=== PATIENT | male | born 1960 | race Caucasian/White ===

== ENCOUNTER 2017-03-14 07:31 | Day surgery (SDC) | payer OTHER ==
[2017-03-13 10:05] VITALS: BMI 33.5
[~2017-03-14] VITALS: Ht 170.2 cm; Wt 102.2 kg
[2017-03-14] VITALS (12 sets, daily range): BP systolic 118–134; BP diastolic 75–88; PULSE 58–105; RESP 10–16; Ht 170.2 cm; Wt 102.2 kg
[~2017-03-14 07:31] MED LIST: CEFAZOLIN 1 GM INJ ONE; CEFAZOLIN 2 GM/50 ML (PMX) 50 ML IVPB SCH; SOD CHLORIDE 0.9% 1,000 ML IV SCH
[2017-03-14] MEDS ORDERED: LORA-186 PO (08:00)
[2017-03-14] MEDS ORDERED: OMEP20CA16 PO (08:00)
[2017-03-14] MEDS ORDERED: LIDOCAINE 2% (MDV) 20 ML INJ ONE (11:01)
[2017-03-14] MEDS ORDERED: BUPIVACAINE 0.5% (SDV) 30 ML INJ ONE (11:01)
[2017-03-14] MEDS ORDERED: BUPIVACAINE 0.25% (MPF) 30 ML INJ ONE (11:01)
[2017-03-14] MEDS ORDERED: ONDANSETRON 4 MG INJ ONE (11:27)
[2017-03-14] MEDS ORDERED: KETOROLAC 30 MG INJ ONE (11:27)
[2017-03-14] MEDS ORDERED: MIDAZOLAM 1 MG/ML 2 ML INJ ONE (11:27)
--- NOTE | 2017-03-14 11:49 | OPR ---
Date/Time of Note Date/Time of Note DATE: 03/14/17 TIME: 11:46 Operative Report Procedure Date: Mar 14, 2017 Preoperative Diagnosis back mass Postoperative Diagnosis back mass Operation Performed 1. back mass excision 6 cm incision and 5 x 3 cm mass 2. localized adjacent tissue transfer with the use of skin flaps 15 sq cm defect 3. therapeutic injection of subcutaneous marcaine cpt code 56943 Surgeon: Brittaney COOPER Anesthesia Type: MAC Estimated Blood Loss: 0 - 10 ml's Specimens back mass Grafts/Implants: none Complications: no Indications This is a 56-year-old male with a back mass. He requires surgical excision. Risks alternatives benefits and percent were discussed the patient. Patient expresses understanding consents to the operation. Procedure Description Patient is taken to the OR and prepped and draped in usual sterile fashion. Surgical timeout is performed. IV antibiotics given. Therapeutic subcu times Marcaine and lidocaine mixture is injected throughout the mass site in the back. A 15 blade is used to make incision circumferentially around the mass site. Dissection cautery was carried down to the subcutaneous tissues to excise the mass in block. Hemostasis of the surgical site was established due to the large tissue defect localized adjacent tissue transfer with these of skin flaps was performed. Superior and inferior skin flaps were advanced and reapproximated with interrupted 2-0 Vicryl. The skin was then closed with skin peter. Dry dressings were applied. Brittaney COOPER Mar 14, 2017 11:49
[2017-03-14] MEDS ORDERED: HYDROCODONE/APAP (5/325) TAB PO ONE (12:00)
== END 2017-03-14 12:58 | disposition home or self-care (01) ==
LOC: SDS 07:31
PROVIDERS: ATTEND Surgery
DX: L72.0 Epidermal cyst (principal); E66.9 Obesity, unspecified; Z68.35 Body mass index [BMI] 35.0-35.9, adult
CPT/HCPCS: 14001; 88307; J0690; J1885; J2250; J2405; J3010; Z7512; Z7610